=== PATIENT | female | born 1990 | race Asian ===

== ENCOUNTER 2018-01-02 12:16 | Observation (INO) | payer OTHER, MEDICAID ==
[~2018-01-02] VITALS: Ht 157.5 cm; Wt 59.4 kg
[~2018-01-02 12:16] MED LIST: ACET-1718 PO; ESOM40CA42 PO; ETHI1TAB25 PO; IBUP800T37 PO; LANS15CA38 PO; OND4 PO; PAN40 PO; ZOL5 PO
[2018-01-02 12:58] VITALS: BP 130/72; Ht 157.5 cm; Wt 59.4 kg
== END 2018-01-02 13:45 | disposition home or self-care (01) ==
LOC: OB 12:16
PROVIDERS: ADMIT Obstetrics & Gynecology; ATTEND Obstetrics & Gynecology
DX: O26.893 Other specified pregnancy related conditions, third trimester (principal); Z3A.37 37 weeks gestation of pregnancy
CPT/HCPCS: 59025; G0378; G0379

== ENCOUNTER 2018-01-13 04:21 | Inpatient (IN) | payer OTHER, MEDICAID ==
[~2018-01-13] VITALS: Ht 157.5 cm; Wt 61.2 kg
[2018-01-13] MEDS ORDERED: METOCLOPRAMIDE 10 MG/2 ML SDV IVP PRN (04:40)
[2018-01-13] MEDS ORDERED: OXYTOCIN 30 UNIT/D5LR 500 ML 500 ML IV PRN ×2 (04:40→06:15)
[2018-01-13] MEDS ORDERED: FAMOTIDINE(*) 20MG/50ML PREMIX 50 ML IVPB PRN (04:40)
[2018-01-13] MEDS ORDERED: fentaNYL CITR 100 MCG/2 ML AMP IVP PRN (04:40)
[2018-01-13] MEDS ORDERED: LR(*) 1000 ML BAG 1,000 ML IV SCH (04:40)
[2018-01-13] MEDS ORDERED: LIDOCAINE 1% LOCAL 300 MG/30ML INJ PRN (04:40)
[2018-01-13] MEDS ORDERED: ceFAZolin(*) 2GM/D5W 50ML 50 ML IVPB PRN (04:40)
[2018-01-13] MEDS ORDERED: cefOXitin/DEX(*) 2GM/50ML PREM 50 ML IVPB PRN (04:40)
[2018-01-13] MEDS ORDERED: ONDANSETRON 4 MG/2 ML VIAL IVP PRN (04:40)
[2018-01-13] MEDS ORDERED: LIDOCAINE/SOD BICARB 8.4% SYR SC PRN (04:40)
[2018-01-13] MEDS ORDERED: DLR(*) 1000 ML BAG 1,000 ML IV PRN (04:40)
[2018-01-13] MEDS ORDERED: ACETAMINOPHEN 500 MG TAB PO PRN (04:40)
[2018-01-13] MEDS ORDERED: LEVO50TA80 PO (05:16)
[2018-01-13 05:17] VITALS: BP 99/63; Ht 157.5 cm; Wt 61.2 kg
[2018-01-13] MEDS ORDERED: PREN-127 PO (05:17)
[2018-01-13 05:21] LABS: PLATELET COUNT, AUTOMATED 174 K/uL (150-450)
[2018-01-13] MEDS ORDERED: PANTOPRAZOLE SOD 40 MG IV VIAL IVP SCH (09:00)
[2018-01-13] MEDS ORDERED: BUPIVACAINE 0.5% INJ 30ML VIAL EPI PRN (09:35)
[2018-01-13] MEDS ORDERED: FENTANYL/ROPIVACAINE 100 ML BAG EPI PRN (09:35)
[2018-01-13] MEDS ORDERED: ePHEDrine 25 MG/5 ML DISP.SYR IVP PRN (09:35)
[2018-01-13] MEDS ORDERED: LIDO/EPI 2% MPF 1:200,000 20ML EPI PRN (09:35)
[2018-01-13] MEDS ORDERED: BUPIVACAINE 0.25% MPF INJ EPI PRN (09:35)
[2018-01-13] MEDS ORDERED: fentaNYL CITR 100 MCG/2 ML AMP IT PRN (09:35)
[2018-01-13] MEDS ORDERED: EPIDURAL KEYS XX PRN (09:35)
[2018-01-13] MEDS ORDERED: LIDOCAINE/PF 2% 200MG/10ML AMP 200 MG/10 ML AMPUL EPI PRN (09:35)
[2018-01-13] MEDS ORDERED: MAGNESIUM HYDROXIDE* 30ML UDCP PO PRN (11:20)
[2018-01-13] MEDS ORDERED: BENZOCAINE 20% 60 ML BTL TP PRN (11:20)
[2018-01-13] MEDS ORDERED: LANOLIN OINT 7 GM TUBE TP PRN (11:20)
[2018-01-13] MEDS ORDERED: ACETAMINOPHEN 325 MG TAB PO PRN (11:20)
[2018-01-13] MEDS ORDERED: HYDROmorphone HCL 2 MG TAB PO PRN (11:20)
[2018-01-13] MEDS ORDERED: GLYCERIN/WITCH HAZEL LEAF 1 PK TP PRN (11:20)
[2018-01-13] MEDS ORDERED: HYDROCORTISONE 2.5% CR 30GM TB PR PRN (11:20)
--- NOTE | 2018-01-13 11:25 | History & Physical ---
History of Present Illness Age of Patient: 27 : 2 Para or TPAL: 1 EDC per LMP: Jan 20, 2018 Estimated Gestational Age: 39 Chief Complaint labor History of Present Illness Presents in labor and after testing, confirmed SROM at 0535. Regular painful contractions and progressive. complicated by thyroid disease well controlled with medication. Otherwise uncomplicated . Historically on prior delivery at 36 weeks. Past Medical, Surgical, Family and Obstetric Histories reviewed. Please see ACOG chart. History Allergies: Coded Allergies: No Known Drug Allergies (Verified , 02/26/16) Social History: , husbnad present and supportive. No noxious habits. Family History: FH: diabetes mellitus FATHER FH: heart disease FH: hypertension FATHER MOTHER No Family History of: FH: asthma FH: cancer FH: stroke Malignant hyperthermia Med Rec Home Meds Reported Medications Vits W-Ca,Fe,Fa(<1MG) ( VITAMINS) 1 Each Tablet, 1 EACH PO DAILY, TAB 01/13/18 Levothyroxine Sodium (SYNTHROID) 50 Mcg Tablet, 50 MCG PO QDAY, TAB 01/13/18 Pantoprazole Sod (Protonix) 40 Mg Tabec, 40 MG PO QDAY, 0 Refills 08/19/10 Review of Systems All Systems Reviewed/Normal: Yes, Except as Noted Other All other systems reported Negative. Exam General Exam Vital Signs Vital Signs Date Time Temp Pulse Resp B/P (MAP) Pulse Ox O2 Delivery O2 Flow Rate FiO2 01/13/18 05:17 98.8 88 16 99/63 (75) 96 Room Air General Apperance: Alert/Awake/No Acute Distress Neuro: No Gross deficits Cardiovascular: Regular Rate and Rhythm Respiratory: No Respiratory Distress Abdomen: Soft, Non-Tender, Non-Distended, Gravid - Non-Tender Psychological: Alert & Oriented X3, Appropriate Mood & Affect Vaginal Discharge/Fluid?: Bloody Show Cervical Dialation: 5 Cervical Effacement (%): 100 Cervical Consistency: Soft Cervical Position: Anterior Presentation: Vertex Fetus Heart Tone Variabilty: Moderate FHT Accelerations: 15X15 FHT Category: I Medical Decision Making Data Points Result Diagram: 01/13/18 0512 VTE Prophylasis: Adult Deep Vein Thrombosis/Pulmonary: No Pharmacological Contraindicati: Pt at Low Risk for VTE Mechanical Contraindications: Pt at Low Risk for VTE Assessment and Plan INFRASTRUCTURE DIRECTOR Plan: Routine Labor Care Problems: (1) Normal labor Assessment & Plan: expecting . Will augment with pitocin if needed. ALEXANDER SCHNEIDER MD Jan 13, 2018 11:25
--- NOTE | 2018-01-13 11:29 | OB Delivery Note ---
Delivery Note Vaginal Delivery Type: Spont. Vaginal Delivery Delivery Date: Jan 13, 2018 Delivery Time: 11:07 Estimated Gestational Age(wks): 39 Delivery Anesthesia: Epidural Infant Sex: Male [place] Apgars: 1 Minute (8), 5 Minute (10) Repair Needed: Laceration, 1st Degree Estimated Blood Loss: 100 Delivery Complications: Laceration Notes: Presented in labor and progressed through labor normally. Epidural placed at pt request and pt moved to completely dilated at 1043. Delivery in MEÑO position with maternal push and over first degree laceration. Shoulders delivered spontaneously with maternal push and no manipulation. Placenta delivered spontaneously without complication and fully intact. Repair with 2-0 chromic x 2 stitches figure of 8. Rn Perioperative in Attendence: No Copies to: ALEXANDER SCHNEIDER MD, TRAVIS MD Jan 13, 2018 11:29
[2018-01-13 13:06] VITALS: BP 117/70
[2018-01-13] MEDS: IBUPROFEN 800 MG TAB PO SCH ×2 (13:36→20:29)
[2018-01-13 16:10] VITALS: BP 111/74
[2018-01-13] MEDS ORDERED: LIDOCAINE 1% LOCAL 300 MG/30ML 30 ML ONE (16:20)
[2018-01-13] MEDS ORDERED: LR(*) 1000 ML BAG 1,000 ML ONE ×2 (16:24→16:40)
[2018-01-13] MEDS: DOCUSATE CALCIUM 240 MG CAP PO SCH (20:29)
[2018-01-13 20:30] VITALS: BP 121/75
[2018-01-14] VITALS: BP 110/63
[2018-01-14] MEDS: IBUPROFEN 800 MG TAB PO SCH ×2 (05:43→13:59)
[2018-01-14 07:20] VITALS: BP 116/72
--- NOTE | 2018-01-14 07:59 | OB/GYN Progress Note ---
OB Subjective Progress Notes Subjective Feeling fine, asking to go home today. Ambulating and voiding well. Mild back pain from epidural site. Perineum OK. Mild lochia, decreasing. Baby doing well. OB Objective Physical Exam Vital Signs Date Time Temp Pulse Resp B/P (MAP) Pulse Ox O2 Delivery O2 Flow Rate FiO2 01/14/18 07:20 97.9 59 16 116/72 (87) Room Air 01/13/18 05:17 96 General Appearance: Alert/Awake/No Acute Distress Cardiovascular: Regular Rate and Rhythm Respiratory: No Respiratory Distress, Clear to Auscultation Abdomen: Soft, Non-Tender, Non-Distended, Bowel Sounds Present, Fundus Firm ( at U) Extremities: No Cyanosis,Clubbing or Edema, No Tender Calves Psychological: Alert & Oriented X3, Appropriate Mood & Affect Result Diagram: 01/14/18 0622 Assessment and Plan Problems: (1) Encounter for care and examination of mother immediately after delivery Status: Acute Assessment & Plan: Doing well , ready for discharge later today. (2) Normal labor Status: Resolved ИРИНА HANEY MD Jan 14, 2018 07:59
[2018-01-14] MEDS ORDERED: TUCKS TP (08:04)
[2018-01-14] MEDS ORDERED: Benzocaine 60 ML TP (08:04)
[2018-01-14] MEDS ORDERED: ACET-2007 PO (08:04)
[2018-01-14] MEDS ORDERED: Lanolin TP (08:04)
[2018-01-14] MEDS ORDERED: IBUP800T37 PO (08:04)
[2018-01-14] MEDS ORDERED: DOCU240C67 PO (08:04)
--- NOTE | 2018-01-14 08:08 | OB/GYN Discharge Summary ---
Discharge Summary Reason for Hosp/Final Diag: (1) Encounter for care and examination of mother immediately after delivery Status: Acute Hospital Course & Plan: After normal labor and vaginal delivery of a viable male , the patient had no complications. She was discharged home with her baby more than 24 hours after delivery, in good condition. (2) Normal labor Status: Resolved Lates Vital Signs Vital Signs Date Time Temp Pulse Resp B/P (MAP) Pulse Ox O2 Delivery O2 Flow Rate FiO2 01/14/18 07:20 97.9 59 16 116/72 (87) Room Air 01/13/18 05:17 96 Weight (Pounds): 135 Result Diagram: 01/14/18621 Condition: Improved Discharge: Home, Self Longterm Meds Reported Medications Vits W-Ca,Fe,Fa(<1MG) ( VITAMINS) 1 Each Tablet, 1 EACH PO DAILY, TAB 01/13/18 Levothyroxine Sodium (SYNTHROID) 50 Mcg Tablet, 50 MCG PO QDAY, TAB 01/13/18 Pantoprazole Sod (Protonix) 40 Mg Tabec, 40 MG PO QDAY, 0 Refills 08/19/10 Follow up with: Dr. Hawkins [phone] Follow up in: 6 wks PP or PO Discharge Diet: As Tolerates Discharge Activity: As Tolerates Copies to: ALEXANDER HAWKINS MD, MARK F MD Jan 14, 2018 08:08
[2018-01-14] MEDS: DOCUSATE CALCIUM 240 MG CAP PO SCH (08:24)
[2018-01-14] MEDS ORDERED: PANTOPRAZOLE SOD 40 MG TABEC PO SCH (09:00)
[2018-01-14] MEDS ORDERED: LEVOTHYROXINE SOD 0.05 MG TAB PO SCH (09:00)
--- NOTE | 2018-01-14 09:35 | Anesthesia OB Pre-Anes Eval ---
History of Present Illness Anesthesia Start Date: Jan 13, 2018 Anesthesia Start Time: 09:50 OB Anesthesia Diagnosis: spontaneous labor, spontaneous ROM EDC: Jan 20, 2018 : 2 Para: 1 Pain Ratin Result Diagram: 01/13/18 0512 Height (Inches): 62.00 Weight (Pounds): 135 BMI Calculated: 24.69 Past Medical History Medical History: no pertinent history Surgical History: noncontributory Previous Anesthesia: general, epidural Attended Childbirth Classes?: No Hx Anesthesia Reactions: No Hx Family Anesthesia Reaction: No Home Meds Active Scripts [Lanolin Oint 7 Gm Tube] 7 GM OINT No Conflict Check, 0 GM TP PRN Y for DISCOMFORT FOR NURSING MOTHERS, TUBE Prov:ИРИНА HANEY MD 01/14/18 Glycerin/Witch Sury [place] (PREPARATION H) 1 Pkg Pad, 0 PKG TP PRN Y for PAIN for 10 Days, PAD Prov:ИРИНА HANEY MD 01/14/18 Docusate Calcium (DOCUSATE CALCIUM) 240 Mg Capsule, 240 MG PO BID for 10 Days, CAPSULE Prov:ИРИНА HANEY MD 01/14/18 [Benzocaine 20% 60 Ml Btl] 60 ML AERS No Conflict Check, 0 ML TP PRN Y for PAIN Prov:ИРИНА HANEY MD 01/14/18 Acetaminophen (MAPAP) 325 Mg Tablet, 325-650 MG PO Q4H Y for FEVER/PAIN for 10 Days, TAB Prov:ИРИНА HANEY MD 01/14/18 Ibuprofen (IBUPROFEN) 800 Mg Tablet, 800 MG PO Q8H PRN pain, #30 TAB 1 Refill Prov:ИРИНА HNAEY MD 01/14/18 Reported Medications Vits W-Ca,Fe,Fa(<1MG) ( VITAMINS) 1 Each Tablet, 1 EACH PO DAILY, TAB 01/13/18 Levothyroxine Sodium (SYNTHROID) 50 Mcg Tablet, 50 MCG PO QDAY, TAB 01/13/18 Pantoprazole Sod (Protonix) 40 Mg Tabec, 40 MG PO QDAY, 0 Refills 08/19/10 Allergies: Coded Allergies: No Known Drug Allergies (Verified , 02/26/16) Anesthesia OB ROS Airway Class: l GI ROS: clear liquids, ice chips Last Solids Date: Jan 12, 2018 Last Solids Time: 20:00 ASA Classification: 2 Assessment and Plan Anesthesia Plan: CAMRONB Anesthesia Stop Day: Jan 13, 2018 Anesthesia Stop Time: 11:20 Epidural Catheter Removal: Removed by: (material engineer after discontinuation of epidural infusion (see nurses notes).) MIRANDA HAGEN CRNA Jan 13, 2018 10:52
--- NOTE | 2018-01-14 09:36 | Procedure Note ---
Anesthetic Placement Note Anesthesia Plan: LEB Permit for Anesthesia Signed: Yes Anesthesia Technique: Patient Sitting Anesthesia Prep: Betadine Interspace: L 3-4 Local Anesthetic: 1% Lidocaine, 25 Gauge Needle Amount Local - cc's: 3 Anesthesia Needle: 17g Touhy/Schliff Anesthesia Attempts: 1 Loss of Resistance: Normal Saline Depth of RYAN (cm): 6 Catheter Insertion (cm): 6 Catheter Type: Braden - Spring Wound Epidural Dressing: Tegaderm, Tape, Adhesive [place] Anesthesia Tray: Lot Number ([id number]), Expiration Date (2018-08-18), Reference Number ([id number]) Comment: Pt. experienced unilateral block, delivered soon after epidural placed. SAB was offered, but pt refused. Anesthesia Medications: Epidural Test Dose: 1.5 Lido/Epi (1:200,000), Dose - mL (3), Time (1005), Negative Epidural Loading Dose: 0.2% Ropivicaine, With Fentanyl 2mcg/ml, Dose - ml (15) , Time (1008), Other (in 5 ml increments) Epidural Infusion: 0.2% Ropivicaine, With Fentanyl 2mcg/ml, Start Time: (1020) Epidural Pump Setting: Bolus Dose - mL (4), Lockout - Minutes (15), Maintenance Rate - mL/hr (8), Maximum per Hour - mL (24) Complications: Sensory motor block on Rt side only, positioned on left side, catheter pulled back 1 cm in attempt to attain even block. MIRANDA HAGEN CRNA Jan 13, 2018 10:50
--- NOTE | 2018-01-14 09:40 | Anesthesia Post Eval Note ---
Anesthesia Post Eval Note Stable, afebrile. Pt able to participate in Eval: Yes Cardiovascular Status: Satisfactory Respiratory Status: Satisfactory Pain Managment: Satisfactory PO Nausea/Vomiting: Satisfactory Temperature Management: Satisfactory Mental Status: Satisfactory, Alert, Oriented X3 Post-Op Hydration Status: Satisfactory, Tolerating PO Well, Voiding w/o Difficulty Anesthesia Type: LEB Anesthesia Tolerance: Ineffective block, suspect septum in epidural space as pt. had similar experience with her last delivery. Ambulatory without S/S PDPH, mild soreness at epidural insertion site, otherwise no complications. MIRANDA HAGEN SEXTON HELPER Jan 14, 2018 09:39
[2018-01-14 12:30] VITALS: BP 119/75
[2018-01-15] MEDS ORDERED: INFLUENZA VIRUS VAC 0.5 ML SYR IM ONLY ONE (09:00)
[2018-01-15] MEDS ORDERED: DIPHTH/TETANUS/ACEL. PERTUSSIS IM ONLY ONE (09:00)
[2018-01-15] MEDS ORDERED: MEASLES,MUMP,RUBELLA VAC 0.5ML SUBQ ONE (09:00)
== END 2018-01-14 14:15 | disposition home or self-care (01) | DRG 775 ==
LOC: OB 04:21
PROVIDERS: ADMIT Student in an Organized Health Care Education/Training Program; ATTEND Student in an Organized Health Care Education/Training Program
PROC: 10E0XZZ Delivery of Products of Conception, External Approach (ICD-10-PCS; principal; 2018-01-13)
PROC: 0HQ9XZZ Repair Perineum Skin, External Approach (ICD-10-PCS; 2018-01-13)
DX: O99.284 Endocrine, nutritional and metabolic diseases complicating childbirth (principal); O70.0 First degree perineal laceration during delivery; E03.9 Hypothyroidism, unspecified; Z37.0 Single live birth; Z3A.39 39 weeks gestation of pregnancy
CPT/HCPCS: 36415; 84112; 85025; 85027; 86850; 86900; 86901; C9113; J2001; J7120